=== PATIENT | male | born 1955 | race Caucasian/White ===

== ENCOUNTER 2021-04-01 06:41 | Day surgery (SDC) | payer BC, OTHER, SELFPAY ==
[~2021-04-01] VITALS: Ht 175.3 cm; Wt 90.7 kg
[2021-04-01] MEDS ORDERED: CEFAZOLIN SOD 1 GM in D5W 50 ML IV ONE (07:15)
[2021-04-01] MEDS ORDERED: POLYMYXIN 500,000/BACIT.10,000 UNITS in NS IRR 1 L IR ONE (11:24)
[2021-04-01] MEDS ORDERED: ROCURONIUM BROMIDE 10 MG/ML (ZEMURON) IV ONE (11:46)
[2021-04-01] MEDS ORDERED: DEXAMETHASONE SOD PHOSPHATE 4 MG/ML VIAL IVP ONE (11:46)
[2021-04-01] MEDS ORDERED: MIDAZOLAM HCL 5 MG/5 ML VIAL IVP ONE (11:46)
[2021-04-01] MEDS ORDERED: BUPIVACAINE /PF 0.5% 30 ML VIAL INJ ONE (11:46)
[2021-04-01] MEDS ORDERED: NS 1000 ML IV.SOLN IV ONE (11:46)
[2021-04-01] MEDS ORDERED: PROPOFOL 200MG/ 20ML VIAL (DIPRIVAN) IV ONE (11:46)
[2021-04-01] MEDS ORDERED: ONDANSETRON HCL 4 MG/2 ML VIAL IVP ONE (11:46)
[2021-04-01] MEDS ORDERED: LR 500 ML IV.SOLN IV ONE (11:46)
[2021-04-01] MEDS ORDERED: SUGAMMADEX SODIUM 200 MG/2 ML VIAL IV ONE (11:46)
[2021-04-01] MEDS ORDERED: ISOFLURANE 15 MIN GAS INH ONE (11:46)
[2021-04-01] MEDS ORDERED: fentaNYL CITRATE 250 MCG/5 ML AMP IV ONE (11:46)
[2021-04-01] MEDS ORDERED: hydrALAZINE HCL 20 MG/ML VIAL IVP PRN (12:15)
[2021-04-01] MEDS ORDERED: MIDAZOLAM HCL 2 MG/2 ML VIAL (VERSED) IVP PRN (12:15)
[2021-04-01] MEDS ORDERED: METOCLOPRAMIDE HCL 10 MG/2 ML VIAL IVP PRN (12:15)
[2021-04-01] MEDS ORDERED: HYDROmorphone 1 INJ. 1 MG/ML CARTRIDGE IVP PRN ×3 (12:15→13:00)
[2021-04-01] MEDS ORDERED: ONDANSETRON HCL 4 MG/2 ML VIAL IVP PRN (12:15)
[2021-04-01] MEDS ORDERED: MEPERIDINE HCL/PF 25 MG/ML DISP.SYRIN IVP PRN (12:15)
[2021-04-01] MEDS ORDERED: LR 1,000 ML IV SCH (12:15)
[2021-04-01] MEDS ORDERED: LABETALOL 100 MG/ 20ML VIAL IVP PRN (12:15)
[2021-04-01] MEDS ORDERED: HYDROcodone/ACETAMIN 5-325 MG TAB (NORCO/ VICODIN) PO PRN ×2 (13:00)
[2021-04-01] MEDS ORDERED: NALOXONE HCL 0.4 MG/ML AMP (NARCAN) IVP PRN ×3 (13:00)
[2021-04-01] MEDS ORDERED: D5/0.45 NS 1,000 ML IV SCH (13:00)
[2021-04-01 13:58] VITALS: BP_SYST 127
[2021-04-01] MEDS ORDERED: HYDROcodone/ACETAMIN 5-325 MG TAB (NORCO/ VICODIN) ONE (14:42)
[2021-04-01 14:48] VITALS: BP_SYST 129
== END 2021-04-01 23:51 | disposition home or self-care (01) ==
LOC: SDS 06:41 → UNDOADMIN 06:41 → SMU 06:41 → EDSTATUS 08:30 → UNDODISIN 23:51 → SDS 23:51
PROVIDERS: ATTEND Colon & Rectal Surgery
DX: K40.90 Unilateral inguinal hernia, without obstruction or gangrene, not specified as recurrent (principal); R73.01 Impaired fasting glucose; G47.33 Obstructive sleep apnea (adult) (pediatric); N40.0 Benign prostatic hyperplasia without lower urinary tract symptoms; I12.9 Hypertensive chronic kidney disease with stage 1 through stage 4 chronic kidney disease, or unspecified chronic kidney disease; N18.9 Chronic kidney disease, unspecified; I48.91 Unspecified atrial fibrillation; Z20.828 Contact with and (suspected) exposure to other viral communicable diseases; Z99.89 Dependence on other enabling machines and devices
CPT/HCPCS: 49505; C1781; C9399; J0690; J1100; J2250; J2405; J2704; J3010; J3490; J7030; J7060; J7120; U0003